=== PATIENT | female | born 1955 | race African-American/Black ===

== ENCOUNTER 2021-07-01 09:34 | Emergency (ER) | payer MEDICARE, SELFPAY ==
[2021-07-01 09:30] VITALS: BP 126/75; PULSE 86; RESP 16; TEMP 37.1
--- NOTE | 2021-07-01 09:35 | ECG_ITS ---
Measurements Intervals [place] Rate: 75 P: 52 OR: 134 QRS: 11 QRSD: 86 T: 33 QT: 374 QTc: 418 Interpretive Statements SINUS RHYTHM NO PREVIOUS ECG AVAILABLE FOR COMPARISON Electronically Signed On 07-01-2021 20:09:39 CDT by Venice Macias M.D.
--- NOTE | 2021-07-01 09:46 | ED.GENADULT ---
HPI - General Adult General Chief complaint: Extremity Injury, Upper Stated complaint: left arm pain down back to foot x 24 hrs Source: patient Mode of arrival: EMS Limitations: no limitations History of Present Illness HPI narrative: Pt is a 65 y/o female, presents to ED via EMS with intermittent muscle spasms, in the right foot, the low back and now the left arm, onset of symptoms 3 days ago. She recently had a implanted stim device placed in the left buttock for urinary incontinence June 05. The incision is well healing and she has no pain at the insertion site. She denies associated fevers, chills, trauma, CP, SOB, abdominal pain, NVDC or urinary symptoms. She has not taken any medication for symptom relief. Pain improves at rest and increases with movement. At this time, while lying supine on the stretcher, her pain is minimal and only noted in the right foot. Location: back, upper extremity and lower extremity Radiation: non-radiation Severity: mild Severity scale (1-10): 2 Quality: stabbing and other (cramping) Pain Consistency: intermittent Relieving factors: rest Exacerbating factors: movement Associated symptoms: denies other symptoms Treatments prior to arrival: none Related Data Allergies Allergy/AdvReac Type Severity Reaction Status Date / Time NSAIDS (Non-Steroidal AdvReac Other Verified 07/01/21 09:35 Anti-Inflamma Review of Systems Review of Systems: All systems reviewed & are unremarkable except as noted in HPI and below [facility] Past Medical History Medical History (Updated 07/01/21 @ 11:55 by ANGELO Todd) Urinary incontinence Exam Const: General: no acute distress and alert Orientation/consciousness: patient oriented x3 HENMT: Head: normal to inspection Ears: external ears normal and TM's normal bilaterally Eyes: Conjunctivae: conjunctivae normal Pupils: Equal, round and reactive pupils present EOM: EOMs intact bilaterally Neck: Neck: normal visual inspection and no lymphadenopathy Chest: Chest palpation & inspection: normal inspection of the chest Resp: Effort & Inspection: normal respiratory effort Auscultation: clear to auscultation bilaterally Cardio: Rate: regular rate Rhythm: regular rhythm GI: GI Palp: Yes Soft to palpation Percussion: Yes normal to percussion Auscultation: normal bowel sounds Other: abdomen is soft, NT, ND : General: Yes no CVA tenderness Back/Spine/Pelvis: Back: no CVA tenderness Other: incision of the left buttock is well healed, non TTP, no erythema or drainage Another well healed surgical incision is noted to the lumbar spine Skin: General skin exam: normal color Rashes: no rashes Neuro: General: patient oriented x3, moves all extremities, no meningeal signs and no focal motor deficits Extrem: General: normal to inspection Other: right foot is unremarkable on exam. No swelling, erythema or TTP noted. PMS intact The lumbar paraspinal muscles are mildly TTP. No palpable spasm. The left arm is also unremarkable on inspection. She has some mild TTP over the muscle groups of the biceps and triceps region. No swelling or erythema. Pulses are intact. ROM is intact at the shoulder, elbow and wrist. Psych: Appearance: grossly normal Mental Status: mental status grossly normal Thought content: Yes Normal thought content present Course Course Emergency Course: Pt is experiencing intermittent, muscle cramping. She reports drinking plenty of water throughout the day but denies any electrolyte replacement. she has no diarrhea or vomiting. EKG is unremarkable. She has no chest pain symptoms. She is given a muscle relaxant and IVF and she reports her symptoms are much better . SHe is requesting discharge home. Plan to discharge now with small quantity of muscle relaxants for home, pushing fluids, resting, FU with PCP next week as scheduled. She is agreeable with plan. Vital Signs Vital signs: Vital Signs Temperature 37.1 C 07/01/21 09:30 Puls
[2021-07-01] MEDS: methocarbamoL 500 MG TABLET 750 MG PO (09:51)
[2021-07-01 10:10] LABS: Basophils Percent Auto 0.4 % (0.2-1.2); Eosinophils Absolute Auto 0.1 K/mm3 (0-0.3); Eosinophils Percent Auto 2.4 % (0-4.4); Hematocrit 29.4 % (37.0-47.0); Hemoglobin 9.9 g/dL (12.0-15.0); Lymphocytes Absolute Auto 0.77 K/mm3 (0.9-3.2); Lymphocytes Percent Auto 15.5 % (18.3-44.2); Mean Corpuscular HGB Conc 33.7 g/dl (32-36); Mean Corpuscular Hemoglobin 26.6 pg (26-34); Mean Platelet Volume 11.3 fl (7.4-10.4); Monocytes Absolute Auto 0.5 K/mm3 (0.1-0.6); Monocytes Percent Auto 9.9 % (2.6-8.5); Neutrophils Absolute Auto 3.6 K/mm3 (1.3-6.7); Neutrophils Percent Auto 71.8 % (45.5-73.1); Platelet Count Result 242 k/mm3 (150-375); Red Blood Count 3.72 M/mm3 (4.2-5.4); Red Cell Distribution Width 14.6 % (11.5-14.5)
[2021-07-01 10:20] LABS: Alanine Aminotransferase 12 U/L (4-35); Albumin Level 4.2 g/dL (3.5-5.1); Alkaline Phosphatase 69 U/L (38-126); Anion Gap 4 mmol/L (8-16); Aspartate Amino Transferase 30 U/L (14-36); Bilirubin,Total 0.4 mg/dL (0.2-1.3); Blood Urea Nitrogen 21 mg/dL (7-17); Calcium 9.2 mg/dL (8.4-10.2); Carbon Dioxide 30 mmol/L (22-30); Chloride 106 mmol/L (98-107); Creatine Kinase 219 U/L (30-135); Estimated CRCL calculation 37 ml/min; Estimated Glomerular Filt Rate 41; Glucose 97 mg/dL (65-110); Potassium 3.7 mmol/L (3.4-5.0); Sodium 140 mmol/L (137-145)
[2021-07-01 10:29] LABS: Creatine Kinase MB 2.3 ng/mL (0.0-2.37)
[2021-07-01] MEDS: SODIUM CHLORIDE 0.9% IV 1,000 ML 999 ML IV CONT (10:44)
== END 2021-07-01 12:05 | disposition home or self-care (01) ==
PROVIDERS: Emergency Provider Nurse Practitioner Family
DX: M79.10 Myalgia, unspecified site (principal); E86.0 Dehydration; R32 Unspecified urinary incontinence; Z96.89 Presence of other specified functional implants
CPT/HCPCS: 36415; 80053; 82550; 82553; 85025; 93005; 96360; 99283; A9270; J7030

== ENCOUNTER 2021-09-27 19:30 | Emergency (ER) | payer MEDICARE, SELFPAY ==
[2021-09-27 19:40] VITALS: BP 133/84; PULSE 87; RESP 16; TEMP 36.3; O2SAT 100
[2021-09-27 20:29] LABS: Basophils Percent Auto 0.4 % (0.2-1.2); Eosinophils Absolute Auto 0.2 K/mm3 (0-0.3); Eosinophils Percent Auto 3.9 % (0-4.4); Hematocrit 32.9 % (37.0-47.0); Hemoglobin 11.1 g/dL (12.0-15.0); Immature Granulocyte Absolute 0.01 K/mm3 (0.00-0.031); Immature Granulocyte Percent A 0.2 % (0-0.5); Lymphocytes Absolute Auto 1.57 K/mm3 (0.9-3.2); Lymphocytes Percent Auto 30.9 % (18.3-44.2); Mean Corpuscular HGB Conc 33.7 g/dl (32-36); Mean Corpuscular Hemoglobin 26.1 pg (26-34); Mean Corpuscular Volume 77.4 fl (80-100); Mean Platelet Volume 11.7 fl (7.4-10.4); Monocytes Absolute Auto 0.6 K/mm3 (0.1-0.6); Neutrophils Absolute Auto 2.7 K/mm3 (1.3-6.7); Neutrophils Percent Auto 52.6 % (45.5-73.1); Platelet Count Result 290 k/mm3 (150-375); Red Blood Count 4.25 M/mm3 (4.2-5.4); Red Cell Distribution Width 14.3 % (11.5-14.5); White Blood Count 5.1 K/mm3 (4.5-10.0)
[2021-09-27 20:51] LABS: Alanine Aminotransferase 12 U/L (6-35); Albumin Level 4.5 g/dL (3.5-5.1); Alkaline Phosphatase 84 U/L (38-126); Anion Gap 13 mmol/L (8-16); Aspartate Amino Transferase 27 U/L (14-36); Bilirubin,Total 0.3 mg/dL (0.2-1.3); Blood Urea Nitrogen 26 mg/dL (7-17); Carbon Dioxide 26 mmol/L (22-30); Chloride 101 mmol/L (98-107); Estimated CRCL calculation 34 ml/min; Estimated Glomerular Filt Rate 46; Glucose 107 mg/dL (65-110); Potassium 3.6 mmol/L (3.4-5.0); Sodium 140 mmol/L (137-145)
[2021-09-27 20:59] LABS: SARS-CoV-2 RNA PCR Negative
--- NOTE | 2021-09-27 21:29 | PC.NURSE ---
pt reports unable to provide urine sample at this time
--- NOTE | 2021-09-27 21:32 | ED.GENADULT ---
HPI - General Adult General Chief complaint: Extremity Problem,Nontraumatic Stated complaint: Right hand shaking out of control. Time Seen by Provider: 09/27/21 20:11 History of Present Illness HPI narrative: 65-year-old female presenting to the emergency department for evaluation of right arm tremor. Patient states that at approximately 6 PM she felt that her right arm was shaking. Patient states that the tremor has resolved. Patient denied any associated numbness or weakness. Patient denies any lightheaded or dizziness. Patient denies any chest pain nausea or vomiting. Patient states that her symptoms have resolved. Patient does state that she was out in the heat today and may have been dehydrated. Related Data Home Medications Medication Instructions Recorded Confirmed allopurinol 300 mg tablet mg 09/27/21 amlodipine 10 mg tablet mg 09/27/21 atorvastatin 10 mg tablet mg 09/27/21 lisinopril 20 tablet 09/27/21 mg-hydrochlorothiazide 12.5 mg tablet Allergies Allergy/AdvReac Type Severity Reaction Status Date / Time NSAIDS (Non-Steroidal AdvReac Other Verified 09/27/21 21:27 Anti-Inflamma Review of Systems Review of Systems: CONSTITUTIONAL: Denies fever, chills, or sweats. EYES: Denies visual changes, redness, or discharge. ENT: Denies rhinorrhea, congestion, sore throat, or otalgia. CARDIOVASCULAR: Denies chest pain, palpitations, or edema. RESPIRATORY: Denies cough or dyspnea. GASTROINTESTINAL: Denies abdominal pain, nausea, vomiting, or diarrhea. GENITOURINARY: Denies dysuria or hematuria. SKIN: Denies rash or itching. MUSCULOSKELETAL: Denies back pain, joint pain, or myalgia. NEUROLOGIC: Denies headache, numbness, or weakness. Tremor right upper extremity, resolved PSYCHIATRIC: Denies anxiety or depression. [facility] Past Medical History Medical History (Updated 09/28/21 @ 00:00 by Background Daemon) Urinary incontinence Exam Narrative: APPEARANCE: Well appearing, no pain, no distress, well-nourished. HEAD: normocephalic, atraumatic. EYES: PERRLA/EOMI, conjunctivae clear. NOSE: Normal no drainage NECK: Supple. No adenopathy, no masses. RESPIRATORY: Airway patent, respirations nonlabored. Clear to auscultation bilaterally, no rales, rhonchi, wheezing. CARDIOVASCULAR: Regular rate and rhythm without murmurs rubs or gallops. ABDOMINAL: Soft, nontender, nondistended, normal bowel sounds MUSCULOSKELETAL: Moves all extremities. Strength/ROM intact, No edema, No calf tenderness. NEURO: Alert. Cranial nerves II through XII intact. Grossly intact SKIN: Warm, dry. Normal Color Course Vital Signs Vital signs: Vital Signs Temperature 97.3 F L 09/27/21 19:40 Pulse Rate 87 09/27/21 19:40 Respiratory Rate 16 09/27/21 19:40 Blood Pressure 133/84 09/27/21 19:40 Pulse Oximetry 100 09/27/21 19:40 Oxygen Delivery Room Air 09/27/21 19:40 Temperature 97.3 F L 09/27/21 19:40 Pulse Rate 88 09/27/21 22:29 Respiratory Rate 18 09/27/21 22:29 Blood Pressure 130/77 09/27/21 22:29 Pulse Oximetry 100 09/27/21 22:29 Oxygen Delivery Room Air 09/27/21 19:40 Medical Decision Making Vital Signs Vital Signs: Vital Signs Temperature 97.3 F L 09/27/21 19:40 Pulse Rate 87 09/27/21 19:40 Respiratory Rate 16 09/27/21 19:40 Blood Pressure 133/84 09/27/21 19:40 Pulse Oximetry 100 09/27/21 19:40 Oxygen Delivery Room Air 09/27/21 19:40 Temperature 97.3 F L 09/27/21 19:40 Pulse Rate 88 09/27/21 22:29 Respiratory Rate 18 09/27/21 22:29 Blood Pressure 130/77 09/27/21 22:29 Pulse Oximetry 100 09/27/21 22:29 Oxygen Delivery Room Air 09/27/21 19:40 Lab Data Lab results reviewed: Yes I reviewed the patient's lab results. Result diagrams: 09/27/21 20:10 09/27/21 20:10 Labs: Lab Results 09/27/21 09/27/21 09/27/21 Range/Units 20:10 20:10 20:10 WBC 5.1 (4.5-10.0) K/mm3 RBC 4.25 (4.2-5.4
[2021-09-27 22:29] VITALS: BP 130/77; PULSE 88; RESP 18; O2SAT 100
== END 2021-09-27 22:31 | disposition home or self-care (01) ==
PROVIDERS: Emergency Provider Emergency Medicine; PCP Hospitalist
DX: R25.1 Tremor, unspecified (principal); Z20.822 Contact with and (suspected) exposure to COVID-19; R32 Unspecified urinary incontinence
CPT/HCPCS: 36415; 80053; 85025; 99283; C9803; U0003; U0005

== ENCOUNTER 2023-10-11 14:24 | Outpatient (CLI) | payer MEDICARE, SELFPAY ==
--- NOTE | 2023-10-11 | ECHO_ITS ---
Patient Info Name: Na Jernigan Age: 67 years : 1955 Gender: Female Ht: 61 in Wt: 185 lbs BSA: 1.94 m2 HR: 70 bpm BP: 140 / 89 mmHg Heart Rhythm: Sinus Rhythm Technical Quality: Good Exam Date: 10/11/2023 3:00 PM Exam Location: Echo Lab Patient Status: Outpatient Admit Date: 10/11/2023 Staff Ordering Physician: SilkeApril Poultry Husbandry Teacher: Mg Bell RDCS Attending Provider: Serge*April Exam Type: CA echo doppler color flow Study Info Indications - MURMUR Complete two-dimensional, color flow and Doppler transthoracic echocardiogram is performed. Summary 1. Complete two-dimensional, color flow and Doppler transthoracic echocardiogram is performed. 2. Left ventricular chamber dimension is normal. 3. Left ventricular systolic function is normal, estimated at 60-65%. 4. The left ventricular diastolic function is grade I diastolic dysfunction. 5. E/e' 12 is mildly elevated. 6. There is mild aortic valve regurgitation. 7. There is trace mitral valve regurgitation. 8. There is mild tricuspid valve regurgitation. 9. Mild pulmonary hypertension, estimated pulmonary arterial systolic pressure is 46 mmHg. Left Ventricle E/e' 12 is mildly elevated. Left ventricular chamber dimension is normal. Left ventricular systolic function is normal, estimated at 60-65%. The left ventricular diastolic function is grade I diastolic dysfunction. Right Ventricle Right ventricular systolic function is normal and with normal TAPSE 2.3 cm. Right ventricular chamber dimension is normal. Left Atria Left atrial chamber dimension is normal. Right Atria Right atrial chamber dimension is normal. Aortic Valve The aortic valve is trileaflet. There is no aortic valve stenosis. There is mild aortic valve regurgitation. Pulmonic Valve There is no pulmonic regurgitation. Mitral Valve There is no mitral valve stenosis. There is trace mitral valve regurgitation. Tricuspid Valve There is mild tricuspid valve regurgitation. Mild pulmonary hypertension, estimated pulmonary arterial systolic pressure is 46 mmHg. Pericardium/Pleural There is no pericardial effusion. Inferior Vena Cava Normal inferior vena cava with >50% collapse upon inspiration consistent with normal right atrial pressure, 5 mmHg. Aorta The aortic root size at the sinus of Valsalva is normal. Left Ventricular Outflow Tract Name Value Normal LVOT 2D LVOT Diameter 1.8 cm LVOT Doppler LVOT Peak Gradient 14 mmHg LVOT Mean Gradient 7 mmHg LVOT VTI 38 cm LVOT VTI/AV VTI Ratio 0.9 LVOT Stroke Volume 98 ml LVOT CO 6.5 l/min LVOT CI 3.4 l/min/m2 Pulmonic Valve Name Value Normal PV Doppler PV Peak Gradient 5 mmHg Mitral Valve
== END 2023-10-11 14:25 | disposition home or self-care (01) ==
PROVIDERS: PCP Hospitalist; Visit Provider Physician Assistant
DX: R01.1 Cardiac murmur, unspecified (principal); I27.20 Pulmonary hypertension, unspecified; I08.3 Combined rheumatic disorders of mitral, aortic and tricuspid valves
CPT/HCPCS: 93306